=== PATIENT | male | born 1980 | race Caucasian/White ===

== ENCOUNTER 2016-05-11 06:21 | Emergency (ER) | payer SELFPAY ==
[~2016-05-11] VITALS: Ht 190.5 cm; Wt 141.6 kg
[~2016-05-11 06:21] MED LIST: MOTRIN600 MG PO; TRAMADOL HCL50 MG PO
[2016-05-11] MEDS ORDERED: ALEVE220 M2 PO (06:47)
[2016-05-11] MEDS ORDERED: POTASSIUM-9999 MG PO (06:48)
[2016-05-11] MEDS ORDERED: MOTRIN800 MG PO (07:43)
[2016-05-11] MEDS ORDERED: FLEXERIL10 MG PO (07:43)
[2016-05-11] MEDS ORDERED: LIDOCAINE700 MG TD (07:43)
[2016-05-11 08:07] VITALS: BP 128/98
== END 2016-05-11 08:07 | disposition home or self-care (01) ==
LOC: EME 06:21
DX: M54.16 Radiculopathy, lumbar region (principal)
CPT/HCPCS: 99281; 99284; J1100